=== PATIENT | female | born 1990 | race Caucasian/White ===

== ENCOUNTER 2019-04-01 12:46 | Inpatient (IN) | payer MEDICAID ==
[2019-04-01 15:43] LABS: HEMATOCRIT 34.6 % (37.0-47.0); HEMOGLOBIN 11.9 g/dl (12.0-16.0); MEAN CORPUSCULAR HEMOGLOBIN 37.4 pg (29.0-33.0); MEAN CORPUSCULAR HGB CONC 34.4 g/dl (32.0-37.0); MEAN CORPUSCULAR VOLUME 108.8 fl (82.0-101.0); MEAN PLATELET VOLUME 10.8 fl (7.4-10.4); PLATELET COUNT 128 10^3/UL (140-415); POSITIVE DIFF @See below; RED BLOOD COUNT 3.18 10^6/ul (4.20-5.40); RED CELL DISTRIBUTION WIDTH 11.8 % (11.5-14.5)
[2019-04-01 15:43] LABS: WHITE BLOOD COUNT 8.3 10^3/ul (4.8-10.8)
[2019-04-01 15:46] LABS: ADD MAN DIFF? YES
[2019-04-01 16:03] LABS: ACETAMINOPHEN < 10.0 ug/ml (10.0-30.0); ALANINE AMINOTRANSFERASE 66 IU/L (13-69); ALBUMIN 5.2 g/dl (3.3-4.9); ALBUMIN/GLOBULIN RATIO 1.33; ALKALINE PHOSPHATASE 104 IU/L (42-121); ANION GAP 18 (5-13); ASPARTATE AMINO TRANSFERASE 108 IU/L (15-46); BILIRUBIN,INDIRECT 1.2 mg/dl (0-1.1); BILIRUBIN,TOTAL 1.2 mg/dl (0.2-1.3); BLOOD UREA NITROGEN 16 mg/dl (7-20); CALCIUM 10.6 mg/dl (8.4-10.2); CARBON DIOXIDE 26 mmol/L (21-31); CHLORIDE 93 mmol/L (97-110); CREATININE 0.59 mg/dl (0.44-1.00); Estimated GFR > 60 mL/min (>60); GLUCOSE 90 mg/dl (70-220); SODIUM 137 mmol/L (135-144); TOTAL PROTEIN 9.1 g/dl (6.1-8.1)
[2019-04-01 16:04] LABS: ETHANOL < 10.0 mg/dl (0-0); SALICYLATE < 1.0 mg/dl (5.0-30.0)
[2019-04-01 16:05] LABS: INR 0.97
[2019-04-01 16:06] LABS: ADD UMIC YES; PARTIAL THROMBOPLASTIN TIME 26.5 Sec (23.0-35.0); UR ASCORBIC ACID NEGATIVE (NEGATIVE); UR BILIRUBIN (Dip) NEGATIVE (NEGATIVE); UR BLOOD (Dip) NEGATIVE (NEGATIVE); UR CLARITY CLOUDY (CLEAR); UR COLOR AMBER (YELLOW); UR GLUCOSE (Dip) NEGATIVE (NEGATIVE); UR KETONES (Dip) 1+ mg/dL (NEGATIVE); UR LEUKOCYTE ESTERASE (Dip) 1+ Leu/ul (NEGATIVE); UR MUCUS FEW /HPF (NONE SEEN); UR NITRITE (Dip) NEGATIVE (NEGATIVE); UR RBC 1 /HPF (0-5); UR SPECIFIC GRAVITY (Dip) 1.026 (1.003-1.030); UR SQUAMOUS EPITHELIAL CELL MANY /HPF (FEW); UR TOTAL PROTEIN (Dip) 2+ mg/dl (NEGATIVE); UR UROBILINOGEN (Dip) NEGATIVE (NEGATIVE); UR WBC 13 /HPF (0-5)
[2019-04-01] MEDS: LEVETIRACETAM 1000 MG (PMX) 100 ML IVPB (16:09)
[2019-04-01] MEDS: LORAZEPAM 2 MG INJ IV ×3 (16:09→23:12)
[2019-04-01] MEDS: MAGNESIUM SULFATE 2 GM, MULTIVITAMINS 10 ML, THIAMINE 100 MG, FOLIC ACID 1 MG in SOD CH... IV (16:09)
[2019-04-01] MEDS: SOD CHLORIDE 0.9% 1,000 ML IV ×2 (16:11→23:03)
[2019-04-01 16:21] LABS: POTASSIUM 2.9 mmol/L (3.5-5.1)
[2019-04-01 17:59] LABS: AMPHETAMINE/METHAMPHETAMINE Negative (NEGATIVE); BARBITURATES Negative (NEGATIVE); BENZODIAZEPINES Negative (NEGATIVE); CANNABINOIDS Positive (NEGATIVE); COCAINE Negative (NEGATIVE); OPIATES Negative (NEGATIVE)
[2019-04-01 18:00] LABS: ANISOCYTOSIS 1+ (0-0); GIANT THROMBO% (M) 7 % (0-0); LYMPHOCYTES #M 1.1 10^3/ul (0.8-2.9); LYMPHOCYTES % (M) 14 % (15-51); MONOCYTE #M 0.7 10^3/ul (0.3-0.9); MONOCYTES % (M) 9 % (0-11); PLATELET ESTIMATE NORMAL; REACTIVE LYMPHOCYTES #M 0.1 10^3/ul (0.0-0.0); REACTIVE LYMPHOCYTES% (M) 2 % (0-0); SEGMENTED NEUTROPHILS (M) % 75 % (39-77); SMUDGE%M 3 % (0-0)
[2019-04-01] MEDS: CHLORDIAZEPOXIDE 25 MG CAP PO (18:42)
[2019-04-01] MEDS: NITROFURANTOIN (SR) 100 MG CAP PO (18:42)
[2019-04-01] MEDS: POTASSIUM CHLORIDE 100 ML IVPB (18:42)
[2019-04-01] MEDS: THIAMINE 100 MG TAB PO (19:21)
[2019-04-01] MEDS ORDERED: ACETAMINOPHEN 325 MG TAB PO ×2 (20:00→23:00)
[2019-04-01] MEDS ORDERED: ONDANSETRON 4 MG INJ IV ×2 (20:00→23:00)
[2019-04-01] MEDS ORDERED: ALBUTEROL/IPRATROPIUM (NEB) 3 ML AMP HHN (23:00)
[2019-04-01] MEDS ORDERED: NACL 0.9% 3 ML SYG IV (23:00)
[2019-04-01] MEDS ORDERED: LORAZEPAM 2 MG INJ IV (23:00)
[2019-04-01] MEDS ORDERED: HYDROCODONE/APAP (5/325) TAB PO (23:00)
[2019-04-01] MEDS ORDERED: hydrALAzine 20 MG INJ IV (23:00)
[2019-04-01] MEDS ORDERED: morphine 2 MG INJ IV (23:00)
[2019-04-01] MEDS ORDERED: MAGNESIUM HYDROXIDE 30ML CUP PO (23:00)
[2019-04-01] MEDS ORDERED: DOCUSATE SODIUM 100 MG CAP PO (23:00)
[2019-04-01] MEDS ORDERED: NITROGLYCERIN (SL) 0.4 MG TAB SL (23:00)
[2019-04-01] MEDS: LEVOFLOXACIN 750MG/D5W (PMX) 150 ML IVPB (23:03)
[2019-04-01] MEDS: FAMOTIDINE 20 MG INJ IV (23:12)
[2019-04-01 23:22] LABS: FREE T4 (FREE THYROXINE) 1.34 ng/dl (0.79-2.35)
[2019-04-02] MEDS: LEVETIRACETAM 1000 MG (PMX) 100 ML IVPB ×2 (00:41→08:33)
[2019-04-02 06:48] LABS: ADD MAN DIFF? NO
[2019-04-02 06:49] LABS: BASOPHIL # 0.1 10^3/ul (0.0-0.1); BASOPHILS % 0.7 % (0.0-2.0); EOSINOPHILS # 0.1 10^3/ul (0.0-0.5); EOSINOPHILS % 1.2 % (0.0-7.0); HEMATOCRIT 34.1 % (37.0-47.0); HEMOGLOBIN 11.3 g/dl (12.0-16.0); LYMPHOCYTES # 0.7 10^3/ul (0.8-2.9); LYMPHOCYTES % 8.1 % (15.0-51.0); MEAN CORPUSCULAR HEMOGLOBIN 36.7 pg (29.0-33.0); MEAN CORPUSCULAR HGB CONC 33.1 g/dl (32.0-37.0); MEAN CORPUSCULAR VOLUME 110.7 fl (82.0-101.0); MEAN PLATELET VOLUME 10.8 fl (7.4-10.4); MONOCYTE # 1.1 10^3/ul (0.3-0.9); MONOCYTES % 13.6 % (0.0-11.0); NEUTROPHIL # 6.1 10^3/ul (1.6-7.5); NEUTROPHILS % 75.7 % (39.0-77.0); PLATELET COUNT 128 10^3/UL (140-415); RED BLOOD COUNT 3.08 10^6/ul (4.20-5.40); RED CELL DISTRIBUTION WIDTH 11.9 % (11.5-14.5)
[2019-04-02 06:49] LABS: WHITE BLOOD COUNT 8.1 10^3/ul (4.8-10.8)
[2019-04-02 07:11] LABS: ANION GAP 12 (5-13); BLOOD UREA NITROGEN 6 mg/dl (7-20); CARBON DIOXIDE 22 mmol/L (21-31); CHLORIDE 104 mmol/L (97-110); CHOL/HDL RATIO 2.1 RATIO; CHOLESTEROL 171 mg/dl (100-200); CREATININE 0.49 mg/dl (0.44-1.00); Estimated GFR > 60 mL/min (>60); GLUCOSE 72 mg/dl (70-220); HDL CHOLESTEROL 80 mg/dl (34-82); LDL CHOLESTEROL,CALCULATED 80 mg/dl; MAGNESIUM 1.7 mg/dl (1.7-2.5); SODIUM 138 mmol/L (135-144); TRIGLYCERIDES 57 mg/dl (0-149)
[2019-04-02 07:41] LABS: THYROID STIMULATING HORMONE 0.607 MIU/L (0.465-4.680)
[2019-04-02 08:05] LABS: HEMOGLOBIN A1C 4.7 % (0-5.9)
[2019-04-02] MEDS: CHLORDIAZEPOXIDE 25 MG CAP PO ×3 (08:33→20:27)
[2019-04-02] MEDS: SOD CHLORIDE 0.9% 1,000 ML IV ×2 (08:33→18:33)
[2019-04-02] MEDS: FAMOTIDINE 20 MG INJ IV (08:33)
[2019-04-02] MEDS: MULTIVITAMINS 10 ML, THIAMINE 100 MG, FOLIC ACID 1 MG in SOD CHLORIDE 0.9% 1,000 ML IVPB (09:57)
[2019-04-02] MEDS: HEPARIN 5,000 UNIT/1 ML VIAL SC ×2 (10:20→20:35)
[2019-04-02] MEDS: POTASSIUM CHLORIDE (SR) 20 MEQ TAB PO (14:55)
[2019-04-02] MEDS: FAMOTIDINE 20 MG TAB PO (20:27)
[2019-04-02] MEDS: LEVOFLOXACIN 750MG/D5W (PMX) 150 ML IVPB (23:10)
[2019-04-03] MEDS: LORAZEPAM 2 MG INJ IV (00:55)
[2019-04-03] MEDS: SOD CHLORIDE 0.9% 1,000 ML IV ×3 (04:37→20:41)
[2019-04-03 06:24] LABS: ADD MAN DIFF? NO
[2019-04-03 06:28] LABS: BASOPHILS % 0.6 % (0.0-2.0); EOSINOPHILS # 0.1 10^3/ul (0.0-0.5); EOSINOPHILS % 1.4 % (0.0-7.0); HEMOGLOBIN 11.3 g/dl (12.0-16.0); LYMPHOCYTES # 1.1 10^3/ul (0.8-2.9); LYMPHOCYTES % 17.4 % (15.0-51.0); MEAN CORPUSCULAR HEMOGLOBIN 37.4 pg (29.0-33.0); MEAN CORPUSCULAR HGB CONC 33.2 g/dl (32.0-37.0); MEAN CORPUSCULAR VOLUME 112.6 fl (82.0-101.0); MONOCYTE # 1.3 10^3/ul (0.3-0.9); MONOCYTES % 20.4 % (0.0-11.0); NEUTROPHIL # 3.8 10^3/ul (1.6-7.5); NEUTROPHILS % 58.8 % (39.0-77.0); PLATELET COUNT 166 10^3/UL (140-415); RED BLOOD COUNT 3.02 10^6/ul (4.20-5.40); RED CELL DISTRIBUTION WIDTH 11.9 % (11.5-14.5)
[2019-04-03 06:28] LABS: WHITE BLOOD COUNT 6.4 10^3/ul (4.8-10.8)
[2019-04-03 07:20] LABS: ANION GAP 8 (5-13); BLOOD UREA NITROGEN 5 mg/dl (7-20); CALCIUM 9.1 mg/dl (8.4-10.2); CARBON DIOXIDE 26 mmol/L (21-31); CHLORIDE 105 mmol/L (97-110); Estimated GFR > 60 mL/min (>60); GLUCOSE 100 mg/dl (70-220); POTASSIUM 3.9 mmol/L (3.5-5.1); SODIUM 139 mmol/L (135-144)
[2019-04-03] MEDS: MULTIVITAMINS 10 ML, THIAMINE 100 MG, FOLIC ACID 1 MG in SOD CHLORIDE 0.9% 1,000 ML IVPB (08:41)
[2019-04-03] MEDS: CHLORDIAZEPOXIDE 25 MG CAP PO ×3 (08:42→20:40)
[2019-04-03] MEDS: FAMOTIDINE 20 MG TAB PO ×2 (08:42→20:40)
[2019-04-03] MEDS: HEPARIN 5,000 UNIT/1 ML VIAL SC ×2 (08:59→21:00)
[2019-04-03] MEDS: CEPASTAT LOZENGE MT (09:02)
[2019-04-03] MEDS: LEVOFLOXACIN 750MG/D5W (PMX) 150 ML IVPB (23:38)
[2019-04-04 06:41] LABS: ADD MAN DIFF? NO
[2019-04-04 06:56] LABS: BASOPHIL # 0.1 10^3/ul (0.0-0.1); BASOPHILS % 0.8 % (0.0-2.0); EOSINOPHILS # 0.1 10^3/ul (0.0-0.5); EOSINOPHILS % 1.3 % (0.0-7.0); HEMATOCRIT 35.4 % (37.0-47.0); HEMOGLOBIN 11.7 g/dl (12.0-16.0); LYMPHOCYTES # 0.9 10^3/ul (0.8-2.9); LYMPHOCYTES % 14.9 % (15.0-51.0); MEAN CORPUSCULAR HEMOGLOBIN 36.8 pg (29.0-33.0); MEAN CORPUSCULAR HGB CONC 33.1 g/dl (32.0-37.0); MEAN CORPUSCULAR VOLUME 111.3 fl (82.0-101.0); MEAN PLATELET VOLUME 10.6 fl (7.4-10.4); MONOCYTE # 1.5 10^3/ul (0.3-0.9); MONOCYTES % 23.9 % (0.0-11.0); NEUTROPHIL # 3.5 10^3/ul (1.6-7.5); NEUTROPHILS % 57.3 % (39.0-77.0); PLATELET COUNT 217 10^3/UL (140-415); RED BLOOD COUNT 3.18 10^6/ul (4.20-5.40); RED CELL DISTRIBUTION WIDTH 12.1 % (11.5-14.5)
[2019-04-04 06:56] LABS: WHITE BLOOD COUNT 6.1 10^3/ul (4.8-10.8)
[2019-04-04 07:26] LABS: ANION GAP 7 (5-13); BLOOD UREA NITROGEN 3 mg/dl (7-20); CALCIUM 9.4 mg/dl (8.4-10.2); CARBON DIOXIDE 27 mmol/L (21-31); CHLORIDE 107 mmol/L (97-110); Estimated GFR > 60 mL/min (>60); GLUCOSE 105 mg/dl (70-220); SODIUM 141 mmol/L (135-144)
[2019-04-04 07:57] LABS: ALANINE AMINOTRANSFERASE 54 IU/L (13-69); ALBUMIN 3.6 g/dl (3.3-4.9); ALKALINE PHOSPHATASE 75 IU/L (42-121); ASPARTATE AMINO TRANSFERASE 73 IU/L (15-46); BILIRUBIN,INDIRECT 0.4 mg/dl (0-1.1); BILIRUBIN,TOTAL 0.4 mg/dl (0.2-1.3); TOTAL PROTEIN 6.6 g/dl (6.1-8.1)
[2019-04-04] MEDS: MULTIVITAMINS 10 ML, THIAMINE 100 MG, FOLIC ACID 1 MG in SOD CHLORIDE 0.9% 1,000 ML IVPB (08:29)
[2019-04-04] MEDS: FAMOTIDINE 20 MG TAB PO (08:29)
[2019-04-04] MEDS: SOD CHLORIDE 0.9% 1,000 ML IV (08:30)
[2019-04-04] MEDS: HEPARIN 5,000 UNIT/1 ML VIAL SC (08:36)
[2019-04-04] MEDS: CHLORDIAZEPOXIDE 25 MG CAP PO ×2 (09:00→13:00)
== END 2019-04-04 19:15 | disposition home or self-care (01) | DRG 897 ==
LOC: TEL 04-02 16:24 → E/R 12:46 → TEL 19:53
DX: F10.239 Alcohol dependence with withdrawal, unspecified (principal); R56.9 Unspecified convulsions; F32.9 Major depressive disorder, single episode, unspecified; F41.9 Anxiety disorder, unspecified; Z88.0 Allergy status to penicillin
CPT/HCPCS: 36415; 70450; 71045; 80048; 80053; 80061; 80076; 80307; 81001; 83036; 83735; 84100; 84439; 84443; 84703; 85025; 85610; 85730; 87086; 93005; 95819; 96374; 96375; 96376; 97161; 99291-25